=== PATIENT | male | born 1955 | race Two or more races ===

== ENCOUNTER 2020-04-28 15:08 | Emergency (ER) | payer MEDICAID ==
[~2020-04-28] VITALS: Ht 167.6 cm; Wt 77.0 kg
[2020-04-28 17:48] VITALS: BP 154/68
== END 2020-04-28 17:53 | disposition home or self-care (01) ==
LOC: ER 15:08
DX: F10.129 Alcohol abuse with intoxication, unspecified (principal); I10 Essential (primary) hypertension; Y90.9 Presence of alcohol in blood, level not specified
CPT/HCPCS: 93005; 99283